=== PATIENT | female | born 1960 | race African-American/Black ===

== ENCOUNTER 2016-07-21 12:02 | Emergency (ER) | payer MEDICAID ==
[~2016-07-21] VITALS: Ht 147.3 cm; Wt 59.0 kg
[~2016-07-21 12:02] MED LIST: nka
[2016-07-21] MEDS ORDERED: SODIUM CHLORIDE 0.9% 1,000 ML IV ONE (12:46)
[2016-07-21] MEDS ORDERED: ONDANSETRON HCL 4MG/2ML VIAL IV STA (12:46)
[2016-07-21] MEDS ORDERED: MORPHINE SULFATE 4 MG/ML CPJ (NOT FOR IM USE) IV STA (12:46)
[2016-07-21] MEDS ORDERED: ETOMIDATE 2MG/ML 10ML VIAL IV ONE (13:15)
[2016-07-21 14:59] VITALS: BP 198/84
== END 2016-07-21 15:04 | disposition home or self-care (01) ==
LOC: ER 13:00
DX: S43.035A Inferior dislocation of left humerus, initial encounter (principal); Z98.890 Other specified postprocedural states; X58.XXXA Exposure to other specified factors, initial encounter; Y93.89 Activity, other specified; Y92.89 Other specified places as the place of occurrence of the external cause; Y99.8 Other external cause status
CPT/HCPCS: 23650; 73030; 96361; 96374; 96375; 99284; J2270; J2405; J3490; J7030; Z7610; L3670

== ENCOUNTER 2016-07-31 17:47 | Inpatient (IN) | payer MEDICAID ==
[~2016-07-31] VITALS: Ht 147.3 cm; Wt 56.7 kg
[2016-07-31] MEDS ORDERED: SODIUM CHLORIDE 0.9% 1,000 ML IV ONE (17:56)
[2016-07-31] MEDS ORDERED: MORPHINE SULFATE 4 MG/ML CPJ (NOT FOR IM USE) IV STA (17:56)
[2016-07-31] MEDS ORDERED: ONDANSETRON HCL 4MG/2ML VIAL IV STA (17:56)
[2016-07-31] MEDS ORDERED: ETOMIDATE 2MG/ML 10ML VIAL IV ONE (18:15)
[2016-07-31] MEDS ORDERED: MIDAZOLAM HCL 2 MG/2 ML VIAL IV ONE (19:00)
[2016-07-31] MEDS ORDERED: FENTANYL CITRATE/PF 50MCG/ML 2ML VIAL IV ONE (19:00)
[2016-07-31] MEDS ORDERED: KETOROLAC 60MG/2ML VIAL IM ONE (19:15)
[2016-07-31] MEDS ORDERED: KETOROLAC 30MG/ML VIAL ONE (19:19)
[2016-07-31] MEDS ORDERED: DEXT 5%/0.45% NACL KCL 20MEQ/L 1,000 ML IV ONE (20:24)
[2016-07-31 20:51] LABS: BASOPHILS % 0.1 % (0.0-2.0); EOSINOPHILS % 0.1 % (0.0-5.0); HEMATOCRIT. 41.4 % (36.0-48.0); HEMOGLOBIN. 13.6 g/dL (12.0-16.0); LYMPHOCYTES % 10.3 % (20.0-50.0); MEAN CORPUSCULAR HEMOGLOBIN 31.6 pg (28.0-32.0); MEAN CORPUSCULAR HGB CONC 32.8 g/dL (31.0-37.0); MEAN CORPUSCULAR VOLUME 96.2 fL (81.0-99.0); MEAN PLATELET VOLUME 7.2 fl (7.4-10.4); MONOCYTES % 7.6 % (2.0-8.0); NEUTROPHILS % 81.9 % (40.0-76.0); PLATELET 262 x1000/uL (130-400); RED BLOOD CELL COUNT 4.31 mill/uL (4.2-5.4); RED CELL DISTRIBUTION WIDTH 15.3 % (11.6-14.6); WHITE BLOOD COUNT 15.6 x1000/uL (4.5-11.0)
[2016-07-31 20:59] LABS: PROTHROMBIN TIME 10.6 sec
[2016-07-31] MEDS ORDERED: MORPHINE SULFATE 4 MG/ML CPJ (NOT FOR IM USE) IV ONE (21:00)
[2016-07-31 21:04] LABS: ANION GAP 13; CALCIUM 9.3 mg/dL (8.5-10.1); CARBON DIOXIDE 25 mEq/L (21-32); CHLORIDE 111 mEq/L (98-107); INDEX HEMOLYSI 1 (1-3); INDEX ICTERIC 1 (1-4); INDEX LIPEMIC 1 (1-3); UREA NITROGEN BLOOD 16 mg/dL (7-21); eGFR > 60 mL/min (>60)
[2016-07-31 22:20] VITALS: BP 156/94
[2016-07-31 23:00] VITALS: BP 156/94
[2016-08-01] MEDS: MORPHINE SULFATE 2 MG/ML CPJ (NOT FOR IM USE) IV PRN ×2 (01:32→05:45)
[2016-08-01] MEDS ORDERED: HYDROCODONE/ACETAMINOPHEN 10/325MG TABLET PO PRN (03:30)
[2016-08-01 04:00] VITALS: BP 139/86
[2016-08-01] MEDS ORDERED: FOLIC ACID 1MG TABLET PO SCH (09:00)
[2016-08-01] MEDS ORDERED: HYDROXYCHLOROQUINE SULFATE 200MG TABLET PO SCH (09:00)
[2016-08-01] MEDS ORDERED: MORPHINE SULFATE 2 MG/ML CPJ (NOT FOR IM USE) IV PRN (09:00)
[2016-08-01] MEDS ORDERED: FENTANYL CITRATE/PF 50MCG/ML 2ML VIAL IV PRN (14:00)
[2016-08-01] MEDS ORDERED: FENTANYL CITRATE/PF 50MCG/ML 2ML VIAL ONE (14:00)
[2016-08-01] MEDS ORDERED: ONDANSETRON HCL 4MG/2ML VIAL IV NR (14:00)
[2016-08-01] MEDS ORDERED: METOCLOPRAMIDE HCL 10MG/2ML VIAL IV NR (14:00)
[2016-08-01] MEDS ORDERED: HYDROMORPHONE HCL/PF 2MG/ML CPJ IV PRN (14:00)
[2016-08-01] MEDS ORDERED: PROPOFOL 200MG/20ML VIAL IV ONE (14:16)
[2016-08-01] MEDS ORDERED: LIDOCAINE HCL 1% 20ML VIAL (Pyxis) INJ ONE (14:16)
[2016-08-01 17:15] VITALS: BP 154/93
[2016-08-07] MEDS ORDERED: METHOTREXATE SODIUM 2 . 5MG TABLET PO SCH (09:00)
== END 2016-08-01 18:05 | disposition home or self-care (01) | DRG 342 ==
LOC: ER 17:47 → 6EST 20:47
PROVIDERS: ADMIT Internal Medicine; ATTEND Internal Medicine
PROC: 0PSDXZZ Reposition Left Humeral Head, External Approach (ICD-10-PCS; principal; 2016-08-01 12:30)
DX: S43.005A Unspecified dislocation of left shoulder joint, initial encounter (principal); I10 Essential (primary) hypertension; S42.292A Other displaced fracture of upper end of left humerus, initial encounter for closed fracture; W19.XXXA Unspecified fall, initial encounter; Y93.89 Activity, other specified; Y92.89 Other specified places as the place of occurrence of the external cause; Y99.8 Other external cause status
CPT/HCPCS: 23650; 36415; 71010; 73030; 76000; 80048; 85025; 85610; 85730; 93005; 96374; 96375; 96376; 99152; 99285; J1885; J2250; J2270; J2405; J2704; J3010; J3490; J7030; L3670